=== PATIENT | male | born 1990 | race American Indian/Alaskan Native ===

== ENCOUNTER 2017-10-18 23:10 | Emergency (ER) | payer SELFPAY ==
[2017-10-18 23:58] VITALS: BP 150/94
[2017-10-18] MEDS ORDERED: ULTRAM ONE (23:59)
[2017-10-19] MEDS ORDERED: ULTRAM PO ONE (00:02)
--- NOTE | 2017-10-19 03:10 | Emergency Department Report ---
ED ENT HPI - General Chief complaint: Dental/Oral Stated complaint: TOOTHACHE, NECK AND HEAD PAIN Time Seen by Provider: 10/19/17 03:04 Source: patient Mode of arrival: Ambulatory Limitations: No Limitations - History of Present Illness Initial comments: 27-year-old Afro-[place]ovenian male comes in complaining of right side bottom jaw toothache as a 10 out of 10. Patient's been suffering from this for about a month but the last 24 hours he started to have a swelling. Patient reported that he was causing him to have pain in his head. Patient reports he was taking ibuprofen which wasn't helping much. Patient has no past medical history currently takes no medications on a daily basis and has no known drug allergies. MD complaint: tooth pain -: hour(s) (24 of jaw swelling), month(s) (1 tooth pain) Severity scale (0 -10): 10 (in triage, no pain after having tramadol) Quality: stabbing, aching Consistency: constant Improves with: other medication Worsens with: none Context- Dental: history of dental caries, poor dental care - Related Data Previous Rx's Medication Instructions Recorded Last Taken Type Amoxicillin [Amoxicillin TAB] 875 mg PO BID #20 tablet 10/19/17 Unknown Rx traMADol [Ultram 50 MG tab] 50 mg PO Q6HR PRN #20 tablet 10/19/17 Unknown Rx Allergies Allergy/AdvReac Type Severity Reaction Status Date / Time No Known Allergies Allergy Verified 10/19/17 00:07 ED Dental HPI - General Chief complaint: Dental/Oral Stated complaint: TOOTHACHE, NECK AND HEAD PAIN Time Seen by Provider: 10/19/17 03:04 Source: patient Mode of arrival: Ambulatory Limitations: No Limitations - Related Data Previous Rx's Medication Instructions Recorded Last Taken Type Amoxicillin [Amoxicillin TAB] 875 mg PO BID #20 tablet 10/19/17 Unknown Rx traMADol [Ultram 50 MG tab] 50 mg PO Q6HR PRN #20 tablet 10/19/17 Unknown Rx Allergies Allergy/AdvReac Type Severity Reaction Status Date / Time No Known Allergies Allergy Verified 10/19/17 00:07 ED Review of Systems ROS: Stated complaint: TOOTHACHE, NECK AND HEAD PAIN Other details as noted in HPI ED Past Medical Hx - Past Medical History Previous Medical History?: No - Surgical History Past Surgical History?: No - Social History Smoking Status: Current Some Day Smoker - Medications Home Medications: Home Medications Medication Instructions Recorded Confirmed Last Taken Type Amoxicillin [Amoxicillin TAB] 875 mg PO BID #20 tablet 10/19/17 Unknown Rx traMADol [Ultram 50 MG tab] 50 mg PO Q6HR PRN #20 tablet 10/19/17 Unknown Rx ED Physical Exam - General Limitations: No Limitations General appearance: alert, in no apparent distress - Head Head exam: Present: atraumatic, normocephalic - Eye Eye exam: Present: normal appearance - ENT ENT exam: Present: mucous membranes moist - Expanded ENT Exam Expanded Teeth exam: Present: dental tenderness # (30), gingival enlargement Throat exam: Positive: normal inspection - Neck Neck exam: Present: normal inspection - Respiratory Respiratory exam: Present: normal lung sounds bilaterally. Absent: respiratory distress - Cardiovascular Cardiovascular Exam: Present: regular rate, normal rhythm. Absent: systolic murmur, diastolic murmur, rubs, gallop - Neurological Exam Neurological exam: Present: alert, oriented X3 - Psychiatric Psychiatric exam: Present: normal affect, normal mood - Skin Skin exam: Present: warm, dry, intact, normal color. Absent: rash ED Course Vital Signs 10/18/17 10/19/17 23:55 00:03 Temperature 98.9 F Pulse Rate 69 Respiratory 20 20 Rate Blood Pressure 150/94 O2 Sat by Pulse 98 Oximetry ED Medical Decision Making - Medical Decision Making Patient has been evaluated by this provider fast track. Patient was given tramadol which he reports has helped with his pain. Discussed the patient that I will place him on antibiotics and pain medication and he needs to follow up with the dentist in the next 5 days. Patient verbalized understanding. Critical care attestation.: If time is entered above; I have spent that time in minutes in the direct care of this critically ill patient, excluding procedure time. ED Disposition Clinical Impression: Abscessed tooth Disposition: DC-01 TO HOME OR SELFCARE Is pt being admited?: No Does the pt Need Aspirin: No Condition: Stable Instructions: Dental Abscess (ED) Additional Instructions: Complete antibiotics as prescribed. Take pain medication as prescribed do not operate heavy machinery by taking tramadol. It is very important for you to follow-up with the dentist in the next 5-7 days. Prescriptions: Amoxicillin [Amoxicillin TAB] 875 mg PO BID #20 tablet traMADol [Ultram 50 MG tab] 50 mg PO Q6HR PRN #20 tablet PRN Reason: Pain Referrals: PRIMARY CARE, [Primary Care Provider] - 3-5 Days [facility] [Outside] - 3-5 Days [facility] [Outside] - 3-5 Days Forms: Work/School Release Form(ED)
== END 2017-10-19 03:28 | disposition home or self-care (01) ==
LOC: ED 23:10
DX: K04.7 Periapical abscess without sinus (principal); F17.200 Nicotine dependence, unspecified, uncomplicated
CPT/HCPCS: 99282

== ENCOUNTER 2020-12-18 15:45 | Emergency (ER) | payer SELFPAY ==
[2020-12-18] MEDS ORDERED: ALPRAZolam 1 MG TAB PO ONE (17:30)
[2020-12-18] MEDS ORDERED: HALOPERIDOL LACTATE 5 MG/1 ML INJ IM PRN (17:30)
[2020-12-18] MEDS ORDERED: LORazepam 2 MG/ML VIAL IM PRN (17:30)
--- NOTE | 2020-12-18 17:31 | Emergency Department Report ---
ED General Adult HPI - General Chief complaint: Psych Stated complaint: MH PUI?: No Time Seen by Provider: 12/18/20 17:19 Source: patient, EMS ( EMS documentation not available at time of chart dictation ), RN notes reviewed Mode of arrival: Ambulatory Limitations: Other (Acute psychosis) - History of Present Illness Initial comments: The patient is a 30-year-old gentleman. He is not known to myself previously. He is brought to the hospital by EMS for presumed new onset psychosis. The patient appears to be paranoid, and he is worried that people are chasing him, and "out to get me." The patient denies physical pain. The patient denies headache, neck pain, chest pain, abdominal pain, shortness of breath, urinary symptoms, homicidality suicidality. He is very paranoid about people trying to come out to get him. As per triage nursing documentation, patient's mother is worried about the patient using methamphetamines. The patient himself is not accompanied by friends or family at this time for additional information/collateral information. He tells me his symptoms are constant, painless, do not radiate anywhere, do not have exacerbating or relieving factors. We attempted to call his mother at [phone] to obtain collateral information. No answer, voicemail left for call back. -: unknown Radiation: other Severity scale (0 -10): 0 Quality: other Consistency: other Improves with: other Worsens with: other - Related Data Previous Rx's Medication Instructions Recorded Last Taken Type Amoxicillin [Amoxicillin TAB] 875 mg PO BID #20 tablet 10/19/17 Unknown Rx traMADoL [Ultram 50 MG tab] 50 mg PO Q6HR PRN #20 tablet 10/19/17 Unknown Rx Allergies Allergy/AdvReac Type Severity Reaction Status Date / Time No Known Allergies Allergy Verified 10/19/17 00:07 ED Review of Systems ROS: Stated complaint: MH Other details as noted in HPI Comment: Unobtainable due to pts medical conditions (The patient is acutely psychotic) Constitutional: denies: fever Cardiovascular: denies: chest pain Gastrointestinal: denies: abdominal pain Psychiatric: anxiety. denies: homicidal thoughts, suicidal thoughts ED Past Medical Hx - Past Medical History Previous Medical History?: No - Surgical History Past Surgical History?: No - Social History Smoking Status: Current Every Day Smoker Substance Use Type: Alcohol, Marijuana - Medications Home Medications: Home Medications Medication Instructions Recorded Confirmed Last Taken Type Amoxicillin [Amoxicillin TAB] 875 mg PO BID #20 tablet 10/19/17 Unknown Rx traMADoL [Ultram 50 MG tab] 50 mg PO Q6HR PRN #20 tablet 10/19/17 Unknown Rx ED Physical Exam - General Limitations: Other (Acute psychosis) General appearance: alert, anxious - Head Head exam: Present: atraumatic, normocephalic - Eye Eye exam: Present: normal appearance, EOMI - ENT ENT exam: Present: normal exam, normal orophraynx, mucous membranes moist, normal external ear exam - Neck Neck exam: Present: normal inspection, full ROM. Absent: tenderness, meningismus - Respiratory Respiratory exam: Present: normal lung sounds bilaterally. Absent: respiratory distress, wheezes, rales, rhonchi, stridor, decreased breath sounds - Cardiovascular Cardiovascular Exam: Present: normal rhythm, tachycardia, normal heart sounds. Absent: systolic murmur, diastolic murmur, rubs, gallop - GI/Abdominal GI/Abdominal exam: Present: soft. Absent: distended, tenderness, guarding, rebound, rigid, pulsatile mass - Rectal Rectal exam: Present: deferred - Extremities Exam Extremities exam: Present: normal inspection, full ROM, other (2+ pulses noted in the bilateral upper and lower extremities. There is no palpable cord. negative Homans sign. Muscular compartments are soft. The pelvis is stable.). Absent: pedal edema, calf tenderness - Back Exam Back exam: Present: normal inspection, full ROM. Absent: tenderness, CVA tenderness (R), CVA tenderness (L), paraspinal tenderness, vertebral tenderness - Neurological Exam Neurological exam: Present: alert, normal gait, other (No facial droop. Tongue midline. Extraocular movements intact bilaterally. Facial sensation intact to light touch in V1, V2, V3 distribution bilaterally. 5 and a 5 strength in 4 extremities. Sensation intact to light touch in 4 extremities.). Absent: motor sensory deficit - Psychiatric Psychiatric exam: Present: anxious. Absent: homicidal ideation, suicidal ideation - Skin Skin exam: Present: warm, dry, intact, normal color. Absent: rash ED Course Vital Signs 12/18/20 12/18/20 12/18/20 16:05 17:28 21:22 Temperature 99.5 F 97.6 F Pulse Rate 135 H 117 H 98 H Respiratory 20 18 18 Rate Blood Pressure 135/89 Blood Pressure 138/110 120/78 [Right] O2 Sat by Pulse 98 98 98 Oximetry - Reevaluation(s) Reevaluation #1: 12/18/20 18:32 Differential diagnosis, including but not limited to: Medical clearance for psychiatric evaluation, drug-induced psychosis, electrolyte derangement, thyroid derangement Assessment and plan: 30-year-old gentleman, who is afebrile with reassuring vital signs with exception of tachycardia, who appears to be acutely psychotic, likely secondary to acute drug ingestion. Serum toxicology studies do not dem onstrate any evidence of Tylenol or aspirin toxicity. Medical care/supportive care only for presumed amphetamine toxicity. Place patient on hold status, obtain noncontrast CT scan of the brain, holding orders initiated, psychiatric consultation requested. Would ideally like to obtain collateral history from patient's mother, as at this point time, she has not called back yet. Reevaluation #2: 12/18/20 19:08 Received call back from Ms. Leila Vázquez, our mental health airplane tube builder. She was able to get in touch with patient's mother who provided collateral information. The patient recently started using recreational meth/ice, and over the past few days, has been complaining about hallucinations, and paranoia. 1013 is recommended. I have filled out. Laboratory studies reviewed and appreciated. Noncontrast CT scan of brain is pending. This is most likely drug-induced psychosis. 12/18/20 21:11 The psychiatric team has recommended a 1013. Noncontrast CT scan of the brain is negative. Patient refusing vital signs. However, he is otherwise not violent or combative. Patient could be considered medically suitable for psychiatric placement, consultation, evaluation and placement at this time, assuming tachycardia resolves. Tachycardia most likely secondary to agitation likely secondary to sympathomimetic ingestion i.e., methamphetamines and ice This should resolve on its own as the patient metabolizes. 12/18/20 21:56 Tachycardia has resolved. Sodium of 131 reviewed and appreciated. Likely secondary to dehydration, likely secondary to methamphetamine use. At this point in time, patient does not appear to have an immediate medical contraindication to psychiatric admission, evaluation, consultation and placement. Sodium/electrolytes should correct with rest, oral hydration, and avoidance of recreational drugs. ED Medical Decision Making - Lab Data Result diagrams: 12/18/20 17:37 12/18/20 17:37 Vital Signs 12/18/20 12/18/20 16:05 17:28 Temperature 99.5 F Pulse Rate 135 H 117 H Respiratory 20 18 Rate Blood Pressure 135/89 Blood Pressure 138/110 [Right] O2 Sat by Pulse 98 98 Oximetry Lab Results 12/18/20 12/18/20 12/18/20 Range/Units 17:37 17:37 17:37 Sodium 131 L (137-145) mmol/L Potassium 4.2 (3.6-5.0) mmol/L Chloride 94.3 L (98-107) mmol/L Carbon Dioxide 21 L (22-30) mmol/L Anion Gap 20 mmol/L BUN 19 (9-20) mg/dL Creatinine 1.1 (0.8-1.3) mg/dL Estimated GFR > 60 ml/min BUN/Creatinine Ratio 17 % Glucose 93 (75-100) mg/dL Calcium 10.1 (8.4-10.2) mg/dL Magnesium (1.7-2.3) mg/dL Total Bilirubin 0.80 (0.1-1.2) mg/dL AST 32 (5-40) units/L ALT 14 (7-56) units/L Alkaline Phosphatase 44 (35-129) units/L Total Creatine Kinase (55-170) units/L Total Protein 7.7 (6.3-8.2) g/dL Albumin 4.9 (3.9-5) g/dL Albumin/Globulin Ratio 1.8 % TSH 3.100 (0.270-4.200) mlU/mL Urine Color (Yellow) Urine Turbidity (Clear) Urine pH (5.0-7.0) Ur Specific Conway (1.003-1.030) Urine Protein (Negative) mg/dL Urine Glucose (UA) (Negative) mg/dL Urine Ketones (Negative) mg/dL Urine Blood (Negative) Urine Nitrite (Negative) Urine Bilirubin (Negative) Urine Urobilinogen (<2.0) mg/dL Ur Leukocyte Esterase (Negative) Urine WBC (Auto) (0.0-6.0) /HPF Urine RBC (Auto) (0.0-6.0) /HPF U Epithel Cells (Auto) (0-13.0) /HPF Salicylates < 0.3 L (2.8-20.0) mg/dL Urine Opiates Screen Urine Methadone Screen Acetaminophen (10.0-30.0) ug/mL Ur Barbiturates Screen Ur Phencyclidine Scrn Ur Amphetamines Screen U Benzodiazepines Scrn Urine Cocaine Screen U Marijuana (THC) Screen Plasma/Serum Alcohol (0-0.07) % 12/18/20 12/18/20 12/18/20 Range/Units 17:37 17:37 17:37 Sodium (137-145) mmol/L Potassium (3.6-5.0) mmol/L Chloride (98-107) mmol/L Carbon Dioxide (22-30) mmol/L Anion Gap mmol/L BUN (9-20) mg/dL Creatinine (0.8-1.3) mg/dL Estimated GFR ml/min BUN/Creatinine Ratio % Glucose (75-100) mg/dL Calcium (8.4-10.2) mg/dL Magnesium 2.10 (1.7-2.3) mg/dL Total Bilirubin (0.1-1.2) mg/dL AST (5-40) units/L ALT (7-56) units/L Alkaline Phosphatase (35-129) units/L Total Creatine Kinase 463 H (55-170) units/L Total Protein (6.3-8.2) g/dL Albumin (3.9-5) g/dL Albumin/Globulin Ratio % TSH (0.270-4.200) mlU/mL Urine Color (Yellow) Urine Turbidity (Clear) Urine pH (5.0-7.0) Ur Specific Conway (1.003-1.030) Urine Protein (Negative) mg/dL Urine Glucose (UA) (Negative) mg/dL Urine Ketones (Negative) mg/dL Urine Blood (Negative) Urine Nitrite (Negative) Urine Bilirubin (Negative) Urine Urobilinogen (<2.0) mg/dL Ur Leukocyte Esterase (Negative) Urine WBC (Auto) (0.0-6.0) /HPF Urine RBC (Auto) (0.0-6.0) /HPF U Epithel Cells (Auto) (0-13.0) /HPF Salicylates (2.8-20.0) mg/dL Urine Opiates Screen Urine Methadone Screen Acetaminophen 5.0 L (10.0-30.0) ug/mL Ur Barbiturates Screen Ur Phencyclidine Scrn Ur Amphetamines Screen U Benzodiazepines Scrn Urine Cocaine Screen U Marijuana (THC) Screen Plasma/Serum Alcohol < 0.01 (0-0.07) % 12/18/20 12/18/20 Range/Units 17:51 17:51 Sodium (137-145) mmol/L Potassium (3.6-5.0) mmol/L Chloride (98-107) mmol/L Carbon Dioxide (22-30) mmol/L Anion Gap mmol/L BUN (9-20) mg/dL Creatinine (0.8-1.3) mg/dL Estimated GFR ml/min BUN/Creatinine Ratio % Glucose (75-100) mg/dL Calcium (8.4-10.2) mg/dL Magnesium (1.7-2.3) mg/dL Total Bilirubin (0.1-1.2) mg/dL AST (5-40) units/L ALT (7-56) units/L Alkaline Phosphatase (35-129) units/L Total Creatine Kinase (55-170) units/L Total Protein (6.3-8.2) g/dL Albumin (3.9-5) g/dL Albumin/Globulin Ratio % TSH (0.270-4.200) mlU/mL Urine Color Colorless (Yellow) Urine Turbidity Clear (Clear) Urine pH 5.0 (5.0-7.0) Ur Specific Conway 1.002 L (1.003-1.030) Urine Protein <15 mg/dl (Negative) mg/dL Urine Glucose (UA) Neg (Negative) mg/dL Urine Ketones Tr (Negative) mg/dL Urine Blood Neg (Negative) Urine Nitrite Neg (Negative) Urine Bilirubin Neg (Negative) Urine Urobilinogen < 2.0 (<2.0) mg/dL Ur Leukocyte Esterase Neg (Negative) Urine WBC (Auto) < 1.0 (0.0-6.0) /HPF Urine RBC (Auto) 3.0 (0.0-6.0) /HPF U Epithel Cells (Auto) < 1.0 (0-13.0) /HPF Salicylates (2.8-20.0) mg/dL Urine Opiates Screen Negative Urine Methadone Screen Negative Acetaminophen (10.0-30.0) ug/mL Ur Barbiturates Screen Negative Ur Phencyclidine Scrn Negative Ur Amphetamines Screen Positive U Benzodiazepines Scrn Negative Urine Cocaine Screen Negative U Marijuana (THC) Screen Positive Plasma/Serum Alcohol (0-0.07) % Critical care attestation.: If time is entered above; I have spent that time in minutes in the direct care of this critically ill patient, excluding procedure time. ED Disposition Clinical Impression: Methamphetamine abuse, Medical clearance for psychiatric admission Disposition: DC/TX-65 PSY HOSP/PSY UNIT Is pt being admited?: No Does the pt Need Aspirin: No Condition: Good Referrals: PRIMARY CARE, [Primary Care Provider] - 3-5 Days
[2020-12-18 18:12] LABS: Bilirubin,Urine NEG (Negative); Blood,Urine NEG (Negative); Color,Urine Colorless (Yellow); Protein,Urine <15 mg/dL mg/dL (Negative); Urobilinogen,Urine < 2.0 mg/dL (<2.0); WBC,Urine < 1.0 /HPF (0.0-6.0)
[2020-12-18 18:14] LABS: Alanine Aminotransferase 14 units/L (7-56); Albumin 4.9 g/dL (3.9-5); BUN/Creatinine Ratio 17; Blood Urea Nitrogen 19 mg/dL (9-20); Calcium 10.1 mg/dL (8.4-10.2); Hemolysis Index 26
[2020-12-18 18:18] LABS: Benzodiazepines Screen,Urine Negative; Cocaine Screen,Urine Negative; Methadone Screen,Urine Negative; Opiate Screen,Urine Negative
[2020-12-18 18:31] LABS: Amphetamine Screen,Urine Positive; Cannabinoid Screen,Urine Positive
[2020-12-18 18:41] LABS: Hematocrit 51.5 % (35.5-45.6); Hemoglobin 17.9 gm/dl (11.8-15.2); Mean Corpuscular HGB Conc 35 % (32-34); Mean Corpuscular Volume 91 fl (84-94); Platelet Count 219 K/mm3 (140-440); Red Blood Count 5.67 M/mm3 (3.65-5.03); Red Cell Distribution Width 12.7 % (13.2-15.2)
[2020-12-18] MEDS ORDERED: ACETAMINOPHEN 325 MG TAB PO PRN (19:07)
[2020-12-18] MEDS ORDERED: ONDANSETRON 4 MG ODT TAB PO PRN (19:07)
--- NOTE | 2020-12-18 20:52 | Cat Scan Report ---
CT head/brain wo con INDICATION: Medical Clearance Psych. TECHNIQUE: Routine CT head. All CT scans at this location are performed using CT dose reduction for A MANUEL by means of automated exposure control. COMPARISON: None. FINDINGS: Intracranial: Freeman-white matter differentiation is maintained. No intracranial hemorrhage. No extra a xial collection. No hydrocephalus. No herniation. Sinuses: Paranasal sinuses and mastoid air cells are essentially clear. Orbits: Globes are intact. Calvarium: No acute fracture. IMPRESSION: 1. No acute intracranial abnormality. Signer Name: Fred Wade MD Signed: 12/18/2020 8:48 PM Workstation Name: [id number]
[2020-12-19 08:22] VITALS: BP 111/75
--- NOTE | 2020-12-19 10:13 | Event Note ---
Date: 12/19/20 This is a 30-year-old male who presented to the emergency department overnight with acute psychosis and methamphetamine abuse. He was seen by my colleague, and placed on a 1013 and ED hold. He was also medically cleared at that time. The patient had some mild hyponatremia that is most likely secondary to some mild dehydration from his methamphetamine use. The same can be said for the slightly elevated hemoglobin level which is once again demargination from mild dehydration. There is a slightly elevated CK level, but not at a level that is concerning for acute rhabdomyolysis. Patient does not appear to have any life or limb threatening emergency that requires a medical admission or acute intervention. I spoke to the emergency department psychiatric nurse, Cristela, who says that there have been no events signed out to her from overnight, nor any significant events this morning. There are no medications that require reconciliation. His vital signs, listed below, have been reassuring. We will continue to monitor this patient throughout his ED course. Vital Signs - 24 hr 12/18/20 12/18/20 12/18/20 16:05 17:28 21:22 Temperature 99.5 F 97.6 F Pulse Rate 135 H 117 H 98 H Respiratory 20 18 18 Rate Blood Pressure 135/89 Blood Pressure 138/110 120/78 [Right] O2 Sat by Pulse 98 98 98 Oximetry 12/19/20 12/19/20 08:18 08:21 Temperature 98.1 F Pulse Rate 71 Respiratory 18 18 Rate Blood Pressure Blood Pressure 111/75 [Right] O2 Sat by Pulse 100 Oximetry
--- NOTE | 2020-12-19 10:35 | Consultation ---
History of Present Illness - Reason for Consult Consult date: 12/19/20 Reason for consult: Psychosis - History of Present Psychiatric Illness Per Ed Note: The patient is a 30-year-old gentleman. He is not known to myself previously. He is brought to the hospital by EMS for presumed new onset psychosis. The patient appears to be paranoid, and he is worried that people are chasing him, and "out to get me." The patient denies physical pain. The patient denies headache, neck pain, chest pain, abdominal pain, shortness of rubin ath, urinary symptoms, homicidality suicidality. He is very paranoid about people trying to come out to get him. As per triage nursing documentation, patient's mother is worried about the patient using methamphetamines. Mikel Treviño is a 30 year old male with no psychiatric history and naive to psychotropic medications. Patient presented to the ED with substance use psychosis. In my interview with patient, patient is calm. He reports recent stressors as loosing his job five days ago. Patient admits using a small amount of Meth " that was my first time." The patient's psychotic behaviors has improved. Patient denies any current suicidal/homicidal ideation and denies hallucinations of any sort. Per Nurse, patient is calm and has shown no aggressive behaviors. PAST PSYCHIATRIC HISTORY: Diagnoses: Denied Suicide attempts or Self-harm behavior: Denied Prior psychiatric hospitalizations: Denied Substance Abuse history: Meth/ Marijuana Previous psychiatric medications tried: None Outpatient treatment: Denied PAST MEDICAL HISTORY: n/a Family Psychiatric History: None reported or documented SOCIAL HISTORY Marital Status: single Living Arrangements: Lives with mother Employment Status: unemployed Access to guns/weapons: n/a Education: GED History of Abuse: n/a Legal History: n/a REVIEW OF SYSTEMS Constitutional: Negative for weight loss ENT: Negative for stridor Respiratory: Negative for cough or hemoptysis All other systems reviewed and are negative MENTAL STATUS EXAMINATION General Appearance and Behavior: Age appropriate, good hygiene, wearing appropriate clothes, uncooperative polite with questioning. 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 PSYCHOTHERAPY: Supportive psychotherapy provided MEDICAL: Per primary team DELIRIUM PRECAUTIONS: Please re-orient patient frequently, keep lights on during the day, and minimize benzodiazepines and opiates as these medications could worsen patient's confusion. EXTENSION PROFESSOR: Per medical team DISPOSITION: Do not recommend inpatient psychiatric hospitalization at this time FOLLOW-UP: Will sign off Thank you for the consult. Please contact with any questions and/or concerns. Medications and Allergies Allergies Allergy/AdvReac Type Severity Reaction Status Date / Time No Known Allergies Allergy Verified 10/19/17 00:07 Home Medications Medication Instructions Recorded Confirmed Last Taken Type Amoxicillin [Amoxicillin TAB] 875 mg PO BID #20 tablet 10/19/17 Unknown Rx traMADoL [Ultram 50 MG tab] 50 mg PO Q6HR PRN #20 tablet 10/19/17 Unknown Rx Active Meds: Active Medications Acetaminophen (Acetaminophen 325 Mg Tab) 650 mg PO Q6HR PRN PRN Reason: PAIN Haloperidol Lactate (Haloperidol Lactate 5 Mg/1 Ml Inj) 5 mg IM Q6HR PRN PRN Reason: Agitation Lorazepam (Lorazepam 2 Mg/Ml Vial) 2 mg IM Q4HR PRN PRN Reason: Agitation Ondansetron HCl (Ondansetron 4 Mg Odt Tab) 4 mg PO Q6HR PRN PRN Reason: Nausea Mental Status Exam - Vital signs Last Vital Signs Temp 98.1 F 12/19/20 08:21 Pulse 71 12/19/20 08:21 Resp 18 12/19/20 08:21 BP 111/75 12/19/20 08:21 Pulse Ox 100 12/19/20 08:21 Results Result Diagrams: 12/18/20 17:37 12/18/20 17:37 Abnormal lab results 12/18/20 12/18/20 12/18/20 Range/Units 17:37 17:37 17:37 RBC (3.65-5.03) M/mm3 Hgb (11.8-15.2) gm/dl Hct (35.5-45.6) % MCHC (32-34) % RDW (13.2-15.2) % Sodium 131 L (137-145) mmol/L Chloride 94.3 L (98-107) mmol/L Carbon Dioxide 21 L (22-30) mmol/L Total Creatine Kinase (55-170) units/L Ur Specific [place] (1.003-1.030) Salicylates < 0.3 L (2.8-20.0) mg/dL Acetaminophen 5.0 L (10.0-30.0) ug/mL 12/18/20 12/18/20 12/18/20 Range/Units 17:37 17:37 17:51 RBC 5.67 H (3.65-5.03) M/mm3 Hgb 17.9 H (11.8-15.2) gm/dl Hct 51.5 H (35.5-45.6) % MCHC 35 H (32-34) % RDW 12.7 L (13.2-15.2) % Sodium (137-145) mmol/L Chloride (98-107) mmol/L Carbon Dioxide (22-30) mmol/L Total Creatine Kinase 463 H (55-170) units/L Ur Specific [place] 1.002 L (1.003-1.030) Salicylates (2.8-20.0) mg/dL Acetaminophen (10.0-30.0) ug/mL All other labs normal.
== END 2020-12-19 13:06 | disposition home or self-care (01) ==
LOC: ED 15:45 → EEVIPCON 15:45 → ED 12-19 13:06
DX: F15.10 Other stimulant abuse, uncomplicated (principal); F12.90 Cannabis use, unspecified, uncomplicated; F17.200 Nicotine dependence, unspecified, uncomplicated; Z00.8 Encounter for other general examination; Z79.899 Other long term (current) drug therapy
CPT/HCPCS: 36415; 70450; 80053; 80307; 80320; 81001; 82550; 83735; 84443; 85027; G0480